=== PATIENT | female | born 1960 | race Asian ===

== ENCOUNTER 2016-10-23 06:41 | Day surgery (SDC) | payer OTHER ==
[2016-10-15 12:32] VITALS: BMI 19.5
--- NOTE | 2016-10-22 16:40 | HP ---
- Patient Scheduled date of Surgery: 10/23/16 Scheduled Surgical Procedure: Phacoemulsification and cataract extraction with PCIOL Affected Eye: Right Chief Complaint (Indication for surgery): Decreased vision affecting ADLs, Glare when driving at night (ansiometropia) - Ocular History Other Eye History: Other (PVD OD, macular hole, allergic conj, OMARI) Previous Eye Surgery: s/p PPV repair of macular hole - Medical History Illnesses: Hypertension, Hypercholesterolemia Current Medications: Ambulatory Orders Amlodipine Besylate 5 mg PO HS 10/15/16 Ascorbate Calcium [Vitamin C] 500 mg PO DAILY 10/15/16 Pravastatin Sodium 10 mg PO HS 10/15/16 Vitamin E 400 unit PO DAILY 10/15/16 Allergies/Adverse Reactions: Allergies Allergy/AdvReac Type Severity Reaction Status Date / Time No Known Drug Allergies Allergy Verified 10/15/16 12:39 Ocular Examination - Best Corrected Visual Acuity Distance: Right eye: 20/40- Distance: Left eye: 20/20 - External/Slit Lamp Examination Abnormalities: decreased tbut, arcus - Intraocular Pressure Intraocular Pressure - Right eye: 15 Intraocular Pressure-Left eye: 15 - Lens Lens: 2-3+ NS - Vitreous/Retina Vitreous/Retina: C:D 0.3 m/v/p wnl - Special Examination M - Right eye: -5.75 -0.75 x90 M - Left eye: +0.50 K - Right eye: 43.25/43.50 x 75 K - Left eye: 43.25/43.75 x 95 AL - Right eye: 23.18 AL - Left eye: 23.19 IOL bag: +21.5 d hoya 251 IOL sulcus: +20.5 d hoya 231 IOL AC: +18.5 d [id number] - Impression Impression: Cataract Right Eye - Plan Plan: Phacoemulsification and cataract extraction - IOL Right eye Post-hospital care will be provided in office on: 10/24/16
--- NOTE | 2016-10-22 16:57 | HP ---
History & Physical Update - History History: No Change - Physical Physical: No Change - Assessment Assessment: No Change - Plan Plan: No Change
[~2016-10-23 06:41] MED LIST: ACETAMINOPHEN 325 MG TABLET (FP) PO PRN
[2016-10-23] MEDS ORDERED: EPINEPHrine/PF 1 MG/1 ML (1:1,000) AMPULE ONE ×2 (07:23→09:04)
[2016-10-23] MEDS ORDERED: TOBRAMYCIN/DEXAMETHASONE OPHTH. OINTMENT 1 TUBE ONE (07:23)
[2016-10-23] MEDS ORDERED: LIDOCAINE HCL/PF 1% SDV 5ML VIAL ONE (07:23)
[2016-10-23] MEDS ORDERED: LIDOCAINE HCL 2% JELLY (5 ML/TUBE) ONE (07:25)
[2016-10-23 07:35] VITALS: TEMP 98
[2016-10-23] MEDS ORDERED: PHENYLEPHRINE 2.5% OPHTH SOLN 15 ML BOTTLE ONE (07:57)
[2016-10-23] MEDS ORDERED: CIPROFLOXACIN 0.3% EYE DROPS 5 ML BOTTLE ONE (07:57)
[2016-10-23] MEDS ORDERED: DICLOFENAC SODIUM 0.1% OPHTHALMIC 2.5ML BOTTLE ONE (07:58)
[2016-10-23] MEDS ORDERED: TROPICAMIDE 1% OPHTH SOLN 15 ML BOTTLE ONE (07:58)
[2016-10-23] MEDS: DICLOFENAC SODIUM 0.1% OPHTHALMIC 2.5ML BOTTLE OP SCH ×2 (08:07→08:13)
[2016-10-23] MEDS: PHENYLEPHRINE 2.5% OPHTH SOLN 15 ML BOTTLE OP SCH ×2 (08:07→08:13)
[2016-10-23] MEDS: CIPROFLOXACIN HCL 0.3% OPHTH 2.5ML BOTTLE OP SCH ×2 (08:07→08:13)
[2016-10-23] MEDS: TROPICAMIDE 1% OPHTH SOLN 15 ML BOTTLE OP SCH ×2 (08:07→08:13)
[2016-10-23] MEDS ORDERED: MIDAZOLAM HCL 2 MG/2 ML SINGLE DOSE VIAL ONE (08:55)
[2016-10-23] MEDS ORDERED: LIDOCAINE HCL 2% JELLY (5 ML/TUBE) TP ONE (09:00)
[2016-10-23] MEDS ORDERED: POVIDONE-IODINE 5% OPHTHALMIC PREP 30 ML SOLUTION OD ONE ×2 (09:15→09:20)
[2016-10-23] MEDS ORDERED: LIDOCAINE HCL 1% PRESERVATIVE FREE - 30ML VIAL IO ONE (09:22)
[2016-10-23] MEDS ORDERED: EPINEPHrine/PF 1 MG/1 ML (1:1,000) AMPULE SQ ONE (09:22)
[2016-10-23] MEDS ORDERED: CHONDROITIN SU A/HYALUR SOD 1 KIT IO ONE (09:22)
[2016-10-23] MEDS ORDERED: BSS (NA/CA/MG/K) BALANCED SALT SOLUTION OPHTH SOLN 15 ML BOTTLE OD ONE (09:22)
[2016-10-23] MEDS ORDERED: TOBRAMYCIN/DEXAMETHASONE OPHTH. OINTMENT 1 TUBE OD ONE (09:54)
--- NOTE | 2016-10-23 10:06 | OP ---
Ophthalmology Operative Note Pre-Operative Diagnosis: Cataract Affected Eye: Right Operation: Phacoemulsification and cataract extraction with PCIOL Findings: cataract right eye Director Of Training: Jeanmarie Anesthesiologist: Leann Tracy Anesthesia: Local, Topical Specimens Removed: none Estimated blood loss: none Drains & Tubes with Location: none Operative Report Dictated: No
[2016-10-23] MEDS ORDERED: ACETAMINOPHEN 325 MG TABLET (FP) ONE (10:29)
[2016-10-23] MEDS ORDERED: ACETAMINOPHEN 325 MG TABLET (FP) PO ONE (10:30)
[2016-10-23 11:23] VITALS: BP 124/66; PULSE 82
--- NOTE | 2016-10-24 11:05 | OP ---
DATE OF OPERATION: 10/23/2016 PREOPERATIVE DIAGNOSIS: Cataract, right eye. POSTOPERATIVE DIAGNOSIS: Mature cataract, right eye. PROCEDURE: Phacoemulsification and cataract extraction with insertion of posterior chamber intraocular lens, right eye. SURGEON: Thalia Jimenez MD BAND SAW OPERATOR CAKE CUTTING: None. ANESTHESIA: Topical. ANESTHESIOLOGIST: Leann Tracy MD OPERATIVE PROCEDURE: The patient received TetraVisc eye drops and was gently sedated and brought to the operating room. The patient was then prepped and draped in the usual sterile fashion, so as to expose only the right eye. Ophthalmic Betadine was instilled into the inferior fornix, and the lashes were taped out of the surgical field. An eyelid speculum was placed into the right eye. A paracentesis was made in superior clear cornea at the limbus. Non-preserved lidocaine, 0.5 cc, was injected into the anterior chamber. Viscoelastic material was instilled into the anterior chamber via the paracentesis. A 2.4-mm keratome was then used to create the main incision in temporal clear cornea at the limbus. A continuous curvilinear capsulorrhexis was performed using a cystotome and Utrata forceps. Hydrodissection of the lens cortex was performed using BSS on a cannula until the nucleus was noted to be freely rotating. The phacoemulsification tip was then inserted via the main wound and used to sculpt 2 perpendicular grooves into the lens nucleus. The nucleus was cracked into 4 quadrants using 2 instruments. Each quadrant was lifted out of the capsule into the iris plane and individually phacoemulcified. The remaining cortical material was then aspirated using the irrigation and aspiration port. The capsular bag was inflated using Provisc and a preloaded Hoya lens, model 251, power +21.5 diopter was injected into the capsular bag and centered using a Sinskey hook. The residual viscoelastic material was removed from the anterior chamber using irrigation and aspiration. The wound edges were hydrated using BSS. The wound was tested for leakage. It was found to be watertight. Therefore, TobraDex ointment was placed in the eye, and the speculum was removed from the eye, and the eyelid was closed. A sterile dressing and shield were placed over the eye, and the patient was transferred to the recovery room in stable condition, told to follow up in 1 day. THALIA JIMENEZ M.D. [id number]
== END 2016-10-23 12:00 | disposition home or self-care (01) ==
LOC: JASU-SURG 06:41
PROVIDERS: ATTEND Ophthalmology
PROC: 08RJ3JZ Replacement of Right Lens with Synthetic Substitute, Percutaneous Approach (ICD-10-PCS; principal; 2016-10-23 08:30)
DX: H25.89 Other age-related cataract (principal)